=== PATIENT | male | born 1980 | race Caucasian/White ===

== ENCOUNTER 2021-02-21 15:46 | Emergency (ER) | payer SELFPAY ==
[~2021-02-21] VITALS: Ht 175.3 cm; Wt 98.0 kg
[2021-02-21 16:29] LABS: HEMATOCRIT 43.8 % (39.0-50.0); HEMOGLOBIN 14.8 g/dl (14.0-18.0); IMMATURE GRANULOCYTES 0.2 % (0.0-5.0); MEAN CELL VOLUME 97.1 fL CALC (80.0-100.0); MEAN CORPUSCULAR HGB 32.8 pG CALC (26.0-32.0); MEAN CORPUSCULAR HGB CONC 33.8 g/dL CAL (32.0-36.0); NEUT# 4.93 thou/uL (1.82-7.42); RED BLOOD COUNT 4.51 mill/uL (4.70-6.10); RED CELL DISTRI WIDTH 13.4 % (11.5-15.5)
[2021-02-21 16:46] LABS: ANION GAP 19 (6-22 (CALC)); BUN 9 mg/dL (9-20); BUN/CREATININE RATIO 9 (12-20 (CALC)); CARBON DIOXIDE 23 mmol/l (22-30); CHLORIDE 105 mmol/l (95-108); ETHYL ALCOHOL 220 mg/dl (0-30); GFR > 60 ML/MIN (>=60 (CALC)); GFR FOR AFR.AMER. > 60 ML/MIN (>=60 (CALC)); POTASSIUM 3.9 mmol/l (3.5-5.1); SODIUM 142 mmol/l (137-146)
[2021-02-21 18:00] VITALS: BP 113/74
== END 2021-02-21 22:15 | disposition short-term general hospital (02) | DRG 880 ==
LOC: ED 15:46
PROVIDERS: Family Medicine
DX: R45.851 Suicidal ideations (principal); F10.129 Alcohol abuse with intoxication, unspecified; Y90.7 Blood alcohol level of 200-239 mg/100 ml; F32.A Depression, unspecified; F41.9 Anxiety disorder, unspecified